=== PATIENT | female | born 1945 | race Caucasian/White ===

== ENCOUNTER 2016-06-01 19:39 | Emergency (ER) | payer OTHER ==
[~2016-06-01] VITALS: Ht 162.6 cm; Wt 63.6 kg
[~2016-06-01 19:39] MED LIST: ADVAIR 250/501 DISK IH; APRESOLINE10 MG PO; CLARITIN,ALAVAR10 MG PO; CLONAZEPAM0.5 MG PO; CONSTULOSE10 GM/15 M PO; CYANOCOBALAM1000 MCG PO; DUONEB 2.5-0.5 M3 ML AEROSOL; ENDOCET 5-3251 EACH PO; FLEXERIL10 MG PO; FLUOXETINE HCL20 MG PO; FOLIC ACID1 MG PO; LIDODERM 5% P1 PATCH TD; LISINOPRIL10 MG PO; NICOTINE PATCH1 EAC1 TD; NYSTATIN15 GM TP; OMEPRAZOLE40 M1 PO; OXYCODONE HCL10 MG PO; OXYCONTIN10 MG PO; OXYCONTIN20 MG PO; PERCOCET 5/31 TABLET PO; PRAVASTATIN SOD40 MG PO; PREDNISONE10 MG PO; PROTONIX40 MG PO; PROVENTIL HFA6.7 GM IH; SALINE FLUSH 5 M5 ML IV; SPIRIVA RESPIMAT4 GM IH; THERAGRAN1 TABLET PO; UNISOM SLEEP AI25 MG PO; ZYRTEC10 M3 PO
[2016-06-01] MEDS ORDERED: PERCOCET 10/1 TABLET PO (23:20)
[2016-06-01 23:35] VITALS: BP 131/84
== END 2016-06-01 23:37 | disposition home or self-care (01) ==
LOC: EME 19:39
DX: S42.291A Other displaced fracture of upper end of right humerus, initial encounter for closed fracture (principal); S01.81XA Laceration without foreign body of other part of head, initial encounter; W01.198A Fall on same level from slipping, tripping and stumbling with subsequent striking against other object, initial encounter; Y92.003 Bedroom of unspecified non-institutional (private) residence as the place of occurrence of the external cause; E78.5 Hyperlipidemia, unspecified; F17.200 Nicotine dependence, unspecified, uncomplicated
CPT/HCPCS: 70486; 73030; 73060; 99281; 99284; J3010

== ENCOUNTER 2017-11-09 12:14 | Emergency (ER) | payer OTHER ==
[~2017-11-09] VITALS: Ht 162.6 cm; Wt 64.0 kg
[~2017-11-09 12:14] MED LIST changes: +PERCOCET 10/1 TABLET PO
[2017-11-09 13:20] LABS: HEMOGLOBIN 13.5 G/DL (11.9-15.5); MCH 29.2 PG (29.0-34.0); MCHC 32.9 G/DL (30.0-36.0); MCV 88.7 FL (83-99); PLATELET COUNT 326 K/uL (156-360); RBC DIS.WIDTH-CV 13.6 % (11.8-14.6); RBC DIS.WIDTH-SD 44.4 % (39-53); RED BLOOD COUNT 4.62 M/uL (3.80-5.20)
[2017-11-09 13:31] LABS: CHLORIDE 105 mEq/L (99-109); SODIUM 140 mEq/L (136-147)
[2017-11-09 13:33] LABS: GLUCOSE 97 mg/dL (70-99)
[2017-11-09 13:37] LABS: CREATININE 0.8 mg/dL (0.6-1.3); GFR ESTIMATE (CALCULATED) > 59 mL/min/
[2017-11-09 13:38] LABS: UREA NITROGEN (BUN) 10 mg/dL (9-23)
[2017-11-09 13:43] LABS: TROP-I INTERPRETATION NEGATIVE; TROPONIN-I < 0.01 ng/mL (0.0-0.30)
[2017-11-09 14:41] LABS: LIPASE 33 U/L (1.0-51.0)
[2017-11-09 14:49] LABS: APPEARANCE CLEAR ((CLEAR)); BILIRUBIN NEGATIVE; BLOOD NEGATIVE; COLOR STRAW ((YELLOW)); GLUCOSE (STRIP) NEGATIVE; KETONES NEGATIVE; LEUKOCYTES NEGATIVE; NITRITE NEGATIVE; PROTEIN (STRIP) NEGATIVE; SPECIFIC GRAVITY 1.005 (1.000-1.030); UCUL ADDED? NO; UROBILINOGEN 0.2 MG/DL (0.2-1.0)
[2017-11-09 16:00] VITALS: BP 185/76
[2017-11-09 17:16] LABS: TROP-I INTERPRETATION NEGATIVE; TROPONIN-I < 0.01 ng/mL (0.0-0.30)
[2017-11-09] MEDS ORDERED: BENTYL20 MG PO (17:26)
== END 2017-11-09 17:45 | disposition home or self-care (01) ==
LOC: EME 12:14
PROVIDERS: Nurse Practitioner Family
DX: K80.20 Calculus of gallbladder without cholecystitis without obstruction (principal); R10.11 Right upper quadrant pain; K21.9 Gastro-esophageal reflux disease without esophagitis; R07.2 Precordial pain; E78.5 Hyperlipidemia, unspecified; Z96.611 Presence of right artificial shoulder joint; F17.200 Nicotine dependence, unspecified, uncomplicated
CPT/HCPCS: 71046; 76705; 80048; 81003; 83690; 84484; 85027; 93005; 99281; 99284